=== PATIENT | male | born 1955 | race Caucasian/White ===

== ENCOUNTER 2017-04-04 23:47 | Inpatient (IN) | payer OTHER ==
[~2017-04-04] VITALS: Ht 152.4 cm; Wt 68.0 kg
--- NOTE | ~2017-04-04 | HP ---
Unit #: [id number] #: [id number] Patient: MARYSE MCINTOSH [id number] [address] [place], [place] [address] [id number] I MR#: [id number] NAME: MARYSE MCINTOSH ROOM: [facility] Age: 61 Sex: M Admission Date: 04/05/2017 : 1955 Attending Physician: Carlitos Farr M.D. Primary Care Physician: Garrett Sheriff M.D. HISTORY AND PHYSICAL REVISED REPORT HISTORY OF PRESENT ILLNESS This is a 61-year-old Bosnian speaking patient with a past medical history of hypertension, hyperlipidemia and tobacco abuse. He states he is currently not on any medications. He had been prescribed medications for his blood pressure and high cholesterol by his primary care physician, but states he has not been taking them for the last year since he has been feeling well. The patient states he was at work yesterday, left work and went home, had dinner and about 30 minutes after dinner developed epigastric and substernal chest pain, described as heaviness with radiation up into his neck. He also developed vomiting as well as shortness of breath at that time and was brought in to the emergency room for evaluation. On arrival to the emergency room the patient was noted to be in atrial fibrillation with a rapid ventricular response. He was given aspirin, a couple of Cardizem boluses and his rate became controlled. Initial [id number]-rb-[id number] troponin was 0.17. Chest x-ray shows borderline cardiomegaly, but no active disease. At present the patient is currently chest pain free. He does report to me that he has had episodes of chest tightness and pressure in the past, but it was relieved with rest. Initial EKG shows atrial fibrillation with rapid ventricular response, rate of 122 beats per minute. Cannot rule out previous inferior infarct. ST abnormality is noted. PAST MEDICAL HISTORY 1. Hypertension. 2. Hyperlipidemia. 3. Tobacco abuse. PAST SURGICAL HISTORY No reported surgeries. SOCIAL HISTORY The patient lives with his son. He does smoke one pack per day for the last 35 years. The patient's approximately two years ago. He denies any illicit drugs. He does drink beer on occasion. FAMILY HISTORY No family history significant for coronary artery disease. HOME MEDICATIONS No reported home medications. The patient states he was placed on Unit #: [id number] #: [id number] Patient: ROSEMARY MCINTOSHVUDIN medicines for his blood pressure and cholesterol by his primary care physician, but has not been taking this medicine for the last year. PHYSICAL EXAMINATION GENERAL: This is a pleasant Bosnian speaking male in no acute distress. All information is obtained via core machine operator phone and review of the chart. VITALS: Temperature 98.2, respiratory rate 18-20, pulse 87-102, blood pressure 157/89. HEENT: Head is atraumatic, normocephalic. Pupils are equal and round. NECK: Trachea midline. No lymphadenopathy or thyromegaly. No jugular venous distension. Carotid upstrokes are normal. LUNGS: Clear to auscultation. No adventitious breath sounds. No rales. No rhonchi. No wheezes. HEART: S1 and S2. Irregularly irregular. No murmur, gallop or rub. ABDOMEN: Soft, nontender and nondistended. Bowel sounds are present. EXTREMITIES: Pulses are palpable. No clubbing, cyanosis or edema. NEUROLOGIC: He is awake, alert and oriented. He moves all extremities equally. DIAGNOSTIC STUDIES IMAGING: Chest x-ray shows borderline cardiomegaly, but no active disease. LABORATORY: Sodium 141, potassium 3.4, chloride 102, CO2 29, BUN 17, creatinine 1.0, glucose 193, hemoglobin 13.0, hematocrit 39.4, white blood cell count 8.2, platelets 217, TSH 1.54, wstyx-el-glbw troponin is 0.17. CARDIOVASCULAR: EKG initially showed atrial fibrillation with rapid ventricular response, rate of 122 beats per minute. Previous inferior infarct cannot be ruled out. ST abnormality is noted, but no acute ischemic change. Repeat EKG shows atrial fibrillation with rate of [address]-T wave abnormality is noted in the lateral leads. ASSESSMENT 1. Angina with elevated troponin. 2. New onset atrial fibrillation of unknown duration. 3. Hypertension. 4. Hyperlipidemia. 5. Tobacco abuse. PLAN The patient will have repeat EKG now. Will trend cardiac enzymes. His initial rrnpk-ij-hxbm troponin was 0.17. Will get a troponin times one now and keep the patient n.p.o. He will also be started on metoprolol 25 mg p.o. b.i.d. with the first dose to be given now. Aspirin 81 mg daily. Will check fasting lipid profile and trend cardiac enzymes. He will also have a two-dimensional echocardiogram. Potassium will be replaced. Further recommendations will be pending Dr. Burgos' assessment. The patient may need cardiac catheterization later this afternoon. Will also continue him on topical nitrates. This has been explained to the patient via core machine operator and he is agreeable. Dictated by Verónica Moise A.P.R.N. for Mirella Burgos M.D. Unit #: [id number] #: [id number] Patient: MARYSE MCINTOSH LMW/gz TD: 04/05/2017 10:35 JOB #: [id number] CC: Tata Purcell/invision Please Delete HISTORY AND PHYSICAL Page 1 of 1 X Verónica Moise APRN X HISTORY AND PHYSICAL
--- NOTE | ~2017-04-04 | EKG ---
PATIENT: ARNALDO, MELVUDIN UNIT #: [id number] Ventricular Rate: 103 BPM Atrial Rate: 234 BPM QRS Duration: 110 ms Q-T Interval: 372 ms QTC Calculation(Bezet): 487 ms Calculated R [place]: 42 degrees Calculated T [place]: 82 degrees Diagnosis Line: Atrial fibrillation with rapid ventricular Diagnosis Line: response Diagnosis Line: ST and T wave abnormality, consider lateral ischemia Diagnosis Line: or digitalis effect Diagnosis Line: Abnormal ECG Diagnosis Line: When compared with ECG of 04-APR-2017 23:57, Diagnosis Line: (unconfirmed) Diagnosis Line: Nonspecific T wave abnormality no longer evident Diagnosis Line: in Inferior leads Diagnosis Line: Confirmed by CLIFFORD LOTT MD ([id number]) on Diagnosis Line: 04/06/2017 9:02:57 AM INTERPRETING MD: KAYLIE BAINS
--- NOTE | ~2017-04-04 | EKG ---
PATIENT: ARNALDO, MELVUDIN UNIT #: [id number] Ventricular Rate: 122 BPM Atrial Rate: 117 BPM QRS Duration: 110 ms Q-T Interval: 348 ms QTC Calculation(Bezet): 495 ms Calculated R [place]: 60 degrees Calculated T Bruno: 90 degrees Diagnosis Line: Atrial fibrillation with rapid ventricular Diagnosis Line: response Diagnosis Line: Cannot rule out Inferior infarct , age Diagnosis Line: undetermined Diagnosis Line: Marked ST abnormality, possible lateral Diagnosis Line: subendocardial injury Diagnosis Line: Abnormal ECG Diagnosis Line: No previous ECGs available Diagnosis Line: Confirmed by ALPA LE MD ([id number]) on Diagnosis Line: 04/05/2017 10:42:03 AM INTERPRETING MD: REY BAINS
--- NOTE | ~2017-04-04 | DS ---
Unit #: [id number] #: [id number] Patient: MARYSE MCINTOSH [id number] [address] [address] [id number] I MR#: [id number] NAME: MARYSE MCINTOSH ROOM: [facility] Age: 61 Sex: M Admission Date: 04/05/2017 : 1955 Discharge Date: Attending Physician: Carlitos Farr M.D. Primary Care Physician: Garrett Sheriff M.D. DISCHARGE SUMMARY DISCHARGE DIAGNOSES 1. Non ST elevated myocardial infarction. 2. Severe three-vessel coronary artery disease. 3. Hypertension. 4. New-onset atrial fibrillation of unknown onset. 5. Tobacco abuse. 6. Hyperlipidemia. 7. Ischemic cardiomyopathy. DISCHARGE MEDICATIONS 1. Atorvastatin 80 mg p.o. nightly. 2. Amlodipine 2.5 mg p.o. daily. 3. Metoprolol 50 mg p.o. b.i.d. 4. Aspirin 81 mg p.o. daily. 5. Imdur ER 30 mg p.o. daily. 6. Lovenox 1 mg/kg subcutaneous q.12 hours. 7. Lisinopril 10 mg p.o. daily. 8. Nitroglycerin 0.4 mg tablet sublingual q.5 minutes x3 p.r.n. chest pain. HOSPITAL COURSE This is a 61-year-old Bosnian-speaking patient with a past medical history of hypertension, hyperlipidemia, and tobacco abuse. The patient presented to the emergency room after he had worked, went home, had dinner, and developed complaints of chest pain. Described as a heaviness with radiation up into his neck. He was also noted to be in atrial fibrillation with a rapid ventricular response. Onset of arrhythmia is unknown. Initial point of care troponin was 0.17. His chest x-ray showed borderline cardiomegaly with no active disease. It was determined the patient needed to be taken to cardiac catheterization after repeat troponin ruled him in for non ST elevated OR. The patient underwent cardiac catheterization per Dr. Sarmiento on April 05, 2017 with results as follows: The patient has heavy calcification with severe three-vessel coronary artery disease, severely decreased left ventricular systolic function with an ejection fraction of 35%. Left main coronary artery is heavily calcified with 40% stenosis. LAD is a large vessel. It goes all the way around the apex. Proximal mid area with heavy calcification. At the ostium, there is 90% stenosis. Mid LAD, there is another 90% stenosis. Left circumflex is a moderate size vessel, nondominant, mid area 100% occluded, distally filled by faint collaterals. RCA is a large vessel, dominant, heavily calcified, 100% occluded at the ostium, distally filled by collaterals. It was determined the patient could not undergo percutaneous coronary intervention secondary to his heavy calcifications. He was treated medically and will be transferred to [facility] today Unit #: [id number] #: [id number] Patient: ARNALDO,MARYSE for coronary artery bypass graft. The patient has remained at [facility] overnight. He has remained stable. His blood pressure is stable. He has had no arrhythmias or any further complaints of chest pain. CONSULTANTS There were no consultants on this case. DIAGNOSTIC STUDIES LABORATORY: Glucose 94, BUN 17, creatinine 0.8, sodium 142, potassium 4.2, chloride 110, CO2 of 23. Magnesium 1.9. Initial troponin was 0.17. Repeat troponin 3.33, then 3.02. Hemoglobin 12.2, hematocrit 37.2, WBC 9.2, platelet count 207,000. IMAGING: Chest x-ray shows borderline cardiomegaly. No active disease. CARDIOVASCULAR: EKG shows atrial fibrillation with RVR, rate of 103 beats per minute, ST-T wave abnormality. QTc interval 487 ms. PHYSICAL EXAMINATION VITAL SIGNS: Temperature 97.5, respiratory rate 18, pulse 108, blood pressure 161/80. GENERAL: This is a pleasant Bosnian-speaking male in no acute distress. HEENT: Head is atraumatic, normocephalic. Pupils are equal and round. NECK: Trachea is midline. No lymphadenopathy. No thyromegaly. Carotid upstrokes are normal. CARDIOVASCULAR: S1, S2. Irregularly irregular. No murmur, gallop, or rub. LUNGS: Clear to auscultation. No rales. No rhonchi. No wheezes. ABDOMEN: Soft, nontender, nondistended. Bowel sounds are present. EXTREMITIES: Pulses are palpable. No clubbing, cyanosis, or edema. ASSESSMENT AND PLAN The patient has been seen and evaluated today. He has no complaints of chest pain. His cardiac rhythm remains atrial fibrillation. Cath site is clean, dry, and intact. No evidence of hematoma or bleeding. The patient will be transferred to [facility] today, admitted to [facility] with evaluation for coronary artery bypass graft. This has been explained to the patient. He is agreeable and willing to transfer in stable condition. Dictated by... Hakeem Givens/diomedes TD: 04/06/2017 11:48 JOB #: [id number] Unit #: [id number] #: [id number] Patient: MARYSE MCINTOSH DISCHARGE SUMMARY Page 1 of 1 X Verónica Moise APRN X DISCHARGE SUMMARY
--- NOTE | ~2017-04-04 | CR72 ---
[facility] A Service of [facility] & [facility] RADIOLOGY TEXT RESULTS PATIENT: MARYSE MCINTOSH LOCATION: [facility] 575-01 : [birth year] UNIT #: [id number] AGE: [address]: Carlitos Farr MD SEX: M ORDER DR: [id number] [facility] [address] [place], [place] [address] [id number] I MR#: [id number] Acc #: [id number] NAME: MARYSE MCINTOSH : 1955 SEX: M STUDY DATE/TIME: 04/05/2017 0:06 UNIT: [facility] ROOM: [facility] STUDY DESCRIPTION: CR Chest Single View Portable Attending Physician: Carlitos Farr M.D. Ordering Physician: Ed Doctor [id number] [facility] Primary Care Physician: Garrett Sheriff M.D. MEDICAL IMAGING REPORT This report is preliminary unless electronic signature is present EXAM Portable chest INDICATION Chest pain starting today. Left-sided pain. COMPARISON 07/18/2016 FINDINGS A portable view of the chest is obtained. The heart size is upper limits of normal. Vascularity is normal and the lungs are clear. Bones are unremarkable. IMPRESSION Borderline cardiomegaly. No active disease. Dictated by... Anand Leal M.D. THIS IS AN ELECTRONICALLY VERIFIED REPORT Anand Leal M.D. at 04/05/2017 9:51 PM Rabia TD: 04/05/2017 01:51 JOB #: [id number] MEDICAL IMAGING REPORT Page 1 of 1 COPY
[2017-04-05 00:20] LABS: BASOPHIL# 0.1 X10e3 (0-0.3); EOSINOPHIL# 0.3 X10e3 (0-0.7); EOSINOPHIL% 3.7 % (0.0-7.0); HEMATOCRIT 39.4 % (38.0-50.0); LYMPHOCYTE# 2.7 X10e3 (1.0-3.5); LYMPHOCYTE% 32.9 % (17.0-45.0); MEAN CELL VOLUME 93.6 FL (83-96); MEAN CORPUSCULAR HGB CONC 33.1 g/dL (30-36); MEAN PLATELET VOLUME 8.1 FL (6.5-11.5); MONOCYTE# 0.6 X10e3 (0-1.0); MONOCYTE% 7.6 % (3.0-12.0); NEUTROPHIL# 4.5 X10e3 (1.5-7.1); NEUTROPHIL% 54.8 % (40-75); PLATELET COUNT 217 X10e3 (140-420); RED BLOOD COUNT 4.21 X10e (3.90-5.60); RED CELL DISTRIBUTION WIDTH 14.9 % (11.0-15.5); WHITE BLOOD COUNT 8.2 X10e3 (4.0-10.5)
[2017-04-05 00:21] LABS: DIFF IND NO
[2017-04-05 00:31] LABS: POC - CKMB 3.5 ng/mL (0.0-7.9); POC - TROPONIN <0.05 ng/mL (<=0.05)
[2017-04-05 00:34] LABS: INR 1.1; PROTHROMBIN TIME (PATIENT) 11.8 SECONDS (10.0-11.7)
[2017-04-05 00:47] LABS: ALBUMIN SERUM 3.8 g/dL (3.5-5.0); BILIRUBIN, DIRECT 0.1 mg/dL (0.0-0.2); BILIRUBIN,INDIRECT 0.3 mg/dL (0.0-0.9); BILIRUBIN,TOTAL 0.4 mg/dL (0.2-2.0); CALCIUM SERUM 8.4 mg/dL (8.4-10.2); POTASSIUM 3.4 mmol/L (3.5-5.1); PROTEIN TOTAL SERUM 7.8 g/dL (6.0-8.3)
[2017-04-05 02:45] LABS: POC - CKMB 6.3 ng/mL (0.0-7.9); POC - TROPONIN 0.17 ng/mL (<=0.05)
[2017-04-05 10:10] LABS: HEMATOCRIT 37.5 % (38.0-50.0); HEMOGLOBIN 12.3 gm/dL (13.0-16.0); MEAN CELL VOLUME 94.3 FL (83-96); MEAN CORPUSCULAR HGB CONC 32.9 g/dL (30-36); MEAN PLATELET VOLUME 8.5 FL (6.5-11.5); RED BLOOD COUNT 3.97 X10e (3.90-5.60); RED CELL DISTRIBUTION WIDTH 15.1 % (11.0-15.5); WHITE BLOOD COUNT 8.5 X10e3 (4.0-10.5)
[2017-04-05 10:28] LABS: INR 1.2; PARTIAL THROMBOPLASTIN TIME 33.6 SECONDS (23.5-31.3); PROTHROMBIN TIME (PATIENT) 12.8 SECONDS (10.0-11.7)
[2017-04-05 10:31] LABS: BUN/CREATININE RATIO 18.75; CALCIUM SERUM 8.2 mg/dL (8.4-10.2); CREATININE SERUM 0.8 mg/dL (0.6-1.4); GLOM FILT RATE Estimated 97.8 mL/min (>60); POTASSIUM 3.8 mmol/L (3.5-5.1)
[2017-04-05 12:50] LABS: %MB 13.4 % (0.0-4.0)
[2017-04-05 17:11] LABS: %MB 12.5 % (0.0-4.0)
[2017-04-06 07:44] LABS: HEMATOCRIT 37.2 % (38.0-50.0); HEMOGLOBIN 12.2 gm/dL (13.0-16.0); MEAN CELL VOLUME 94.5 FL (83-96); MEAN CORPUSCULAR HEMOGLOBIN 30.9 PG (28-34); MEAN CORPUSCULAR HGB CONC 32.7 g/dL (30-36); MEAN PLATELET VOLUME 8.6 FL (6.5-11.5); RED BLOOD COUNT 3.94 X10e (3.90-5.60); RED CELL DISTRIBUTION WIDTH 14.9 % (11.0-15.5); WHITE BLOOD COUNT 9.2 X10e3 (4.0-10.5)
[2017-04-06 08:11] LABS: BUN/CREATININE RATIO 21.25; CALCIUM SERUM 8.7 mg/dL (8.4-10.2); CREATININE SERUM 0.8 mg/dL (0.6-1.4); GLOM FILT RATE Estimated 97.8 mL/min (>60); POTASSIUM 4.2 mmol/L (3.5-5.1)
== END 2017-04-08 17:30 | DRG 282 ==
LOC: CED 23:47 → C5C 04-05 02:55 → CEDOF 04-05 02:55 → CED 04-05 03:00 → CEDOF 04-05 03:00 → C5C 04-05 03:49
PROVIDERS: Emergency Medicine; Internal Medicine Cardiovascular Disease
PROC: B24BYZZ Ultrasonography of Heart with Aorta using Other Contrast (ICD-10-PCS; principal; 2017-04-05)
PROC: 4A023N7 Measurement of Cardiac Sampling and Pressure, Left Heart, Percutaneous Approach (ICD-10-PCS; 2017-04-05)
PROC: B211YZZ Fluoroscopy of Multiple Coronary Arteries using Other Contrast (ICD-10-PCS; 2017-04-05)
PROC: B215YZZ Fluoroscopy of Left Heart using Other Contrast (ICD-10-PCS; 2017-04-05)
DX: I21.4 Non-ST elevation (NSTEMI) myocardial infarction (principal); I10 Essential (primary) hypertension; I48.91 Unspecified atrial fibrillation; E78.5 Hyperlipidemia, unspecified; F17.210 Nicotine dependence, cigarettes, uncomplicated; I25.119 Atherosclerotic heart disease of native coronary artery with unspecified angina pectoris; I25.5 Ischemic cardiomyopathy
CPT/HCPCS: 36415; 71010; 80048; 80061; 80076; 82550; 82553; 83735; 84443; 84484; 85025; 85027; 85610; 85730; 93005; 93306; 96374; 99285; C1769; J0360; J1644; J1650; J2250; J2405; J3010